=== PATIENT | male | born 1945 | race Caucasian/White ===

== ENCOUNTER → 2016-05-19 | Outpatient (CLI) | payer MEDICARE, OTHER ==
--- NOTE | 2016-05-19 09:09 | RAD ---
EXAM DESCRIPTION: Hip,Right 2 Views CLINICAL HISTORY: 70 yearsMale, PAIN IN RIGHT HIP COMPARISON: None. IMPRESSION: 2 views of the right hip demonstrates subtle joint space loss of the right hip with no evidence of fracture. Some deformity of the humeral head which may contribute to acetabular impingement syndrome. This can be confirmed on MRI. Electronically signed by: Juan Jaramillo MD 05/19/2016 9:08 AM FOOD SCIENCE PROFESSOR
--- NOTE | 2016-05-19 09:10 | RAD ---
EXAM DESCRIPTION: Pelvis CLINICAL HISTORY: 70 yearsMale, PAIN IN RIGHT HIP COMPARISON: None. IMPRESSION: Multilevel fusion including bilateral SI joint screws. Joint space loss of the right hip. Degenerative change of the pubic symphysis. The pelvis is intact. Electronically signed by: Juan Jaramillo MD 05/19/2016 9:09 AM FIRST ASSISTANT
== END | disposition home or self-care (01) ==
LOC: RAD 08:15
PROVIDERS: ATTEND Orthopaedic Surgery
DX: M25.551 Pain in right hip (principal)

== ENCOUNTER → 2016-11-20 | Outpatient (CLI) | payer MEDICARE, OTHER ==
--- NOTE | 2016-11-21 08:22 | RAD ---
EXAM DESCRIPTION: Wrist,Left 3 Views CLINICAL HISTORY: 71 years, Male, PAIN IN LEFT WRIST COMPARISON: None TECHNIQUE: AP/ lateral/ oblique views of the left wrist. FINDINGS: Severe degenerative changes at the base of the thumb at the carpal metacarpal articulation is evident. The wrist at the radiocarpal articulation is well preserved with very mild degenerative changes. No fracture or dislocation is noted. IMPRESSION: 1. Advanced degenerative changes at the base of the thumb at the carpal metacarpal articulation. Electronically signed by: Joaquin Figueroa MD 11/21/2016 8:20 AM CDT
== END | disposition home or self-care (01) ==
LOC: RAD 14:45
PROVIDERS: ATTEND Orthopaedic Surgery
DX: M25.532 Pain in left wrist (principal)

== ENCOUNTER 2017-08-28 06:20 | Day surgery (SDC) | payer MEDICARE, OTHER ==
--- NOTE | 2017-08-24 09:24 | HP ---
CHIEF COMPLAINT: Hand numbness and pain. HISTORY OF PRESENT ILLNESS: Mr. Hernandez is a 71-year-old male with a history of hand pain and numbness. He has some arthritis and he knows that has been preexisting. He denies any recent trauma, radiation of pain neurologic symptoms proximal to the wrist. He has had an EMG that shows that he does indeed have carpal tunnel syndrome. Because of the long-term presence of his carpal tunnel syndrome, he has requested operative intervention. After discussing the risks, benefits and alternatives to that, the patient has given informed consent. PAST SURGICAL HISTORY: 1. Lumbar fusion. MEDICATIONS: Please see his attached medication list. ALLERGIES: NO KNOWN DRUG ALLERGIES. CODE STATUS: DNR. IMMUNIZATIONS: Up to date. FAMILY HISTORY: None pertinent to today's complaint. SOCIAL HISTORY: The patient does not drink, smoke or use any illicit drugs. REVIEW OF SYSTEMS: Negative except as indicated in the History of Present Illness. PHYSICAL EXAMINATION: VITAL SIGNS: Blood pressure 128/69. Pulse 78. Height 5'8". Weight 175 pounds. MENTAL STATUS: The patient is awake, alert, and is able to give a good history and participate in the physical. The patient is oriented to person, place and time. SKIN: Normal tone and turgor. MUSCULOSKELETAL: He has full range of motion of the digits, but he does have some thenar atrophy. He has intact range of motion in the elbow and shoulder. 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 He has positive carpal compression test. He has warm and well perfused extremity. Tinel's is positive and he has pain over the first CMC joint. ASSESSMENT: 1. Carpal tunnel syndrome. 2. Osteoarthritis. PLAN: The plan at this point is for carpal tunnel release. We have also discussed injection of the first carpometacarpal joint as he tends to have pretty significant pain in that area. We have discussed the risks, benefits, and alternatives to these procedures and the patient has given informed consent. #[id number] [facility]
[2017-08-28] MEDS ORDERED: SODIUM CHL 0.9% 100ML MINI-BAG 100 ML IVPB ONE (09:51)
[2017-08-28] MEDS ORDERED: LACTATED RINGERS 1,000 ML ONE (09:51)
[2017-08-28] MEDS ORDERED: LIDOCAINE 1% 50 ML VIAL INJ ONE (10:00)
[2017-08-28] MEDS ORDERED: PROPOFOL 200 MG/20 ML VIAL IV ONE (10:00)
[2017-08-28] MEDS ORDERED: MIDAZOLAM INJ 2 MG/2 ML VIAL ONE (11:53)
[2017-08-28] MEDS ORDERED: fentaNYL CITRATE INJ 50 MCG/ML AMP ONE (11:54)
[2017-08-28] MEDS: ceFAZolin SODIUM 1 GM VIAL ONE ×2 (12:03→12:36)
[2017-08-28] MEDS: BUPIVACAINE 0.25% INJ 30 ML VIAL INJ ONE (12:28)
[2017-08-28] MEDS: LIDOCAINE 1% 50 ML VIAL INJ ONE (12:28)
[2017-08-28] MEDS: methylPREDNISolone ACETATE 80 MG/ML VIAL ONE (12:29)
[2017-08-28] MEDS: VANCOMYCIN HCL INJ 1,000 MG VIAL IVPB ONE (12:30)
[2017-08-28 13:06] VITALS: O2SAT 98
[2017-08-28 13:27] VITALS: BP 144/72; TEMP 98
--- NOTE | 2017-08-29 13:59 | OP ---
DATE OF PROCEDURE: 08/28/17 PREOPERATIVE DIAGNOSIS: 1. Carpal tunnel syndrome. 2. Osteoarthritis of the first carpometacarpal joint. POSTOPERATIVE DIAGNOSIS: 1. Carpal tunnel syndrome. 2. Osteoarthritis of the first carpometacarpal joint. PROCEDURE: 1. Carpal tunnel release. 2. Injection of the first carpometacarpal joint. SURGEON: Sudarshan Gardner MD. ASSOCIATE MANAGER: Dante Laboy CST, JAY JAY. ANESTHESIA: Local with sedation. COMPLICATIONS: None. FINDINGS: 1. Thickened of the transverse ligament. 2. Osteoarthritis of the first carpometacarpal joint. INDICATION: Mr. Hernandez has a history of pain in the hand in association with some numbness. Mr. Hernandez has tried conservative measures, however, has failed to gain relief. Because of his failure of relief, the patient has requested operative intervention. After discussing the risks, benefits and alternatives to that, the patient has given informed consent. PROCEDURE: The patient was brought to the Operating Room and placed in the supine position. Sedation was administered and local anesthetic was injected into the operative area under sterile conditions. After the injection of anesthetic, the arm was sterilely prepped and draped. A longitudinal incision was made directly overlying the transverse carpal ligament and blunt dissection was carried down to the ligament. The transverse carpal ligament was sharply transected along its length and a [place] elevator was used to ensure complete release of the ligament. Once release had been confirmed, the wound was thoroughly irrigated and the wound was closed with Nylon suture. Under sterile conditions, the first carpometacarpal joint was identified and was injected with a mixture of lidocaine and Depo-Medrol. Sterile dressings were placed and the patient was taken to the Day Surgery Unit. POSTOPERATIVE INSTRUCTIONS: The patient has been encouraged to do range of motion of the digits and will followup with us in two days. #[id number] [facility]
== END 2017-08-28 13:15 | disposition home or self-care (01) ==
LOC: AMB 06:20
PROVIDERS: ATTEND Orthopaedic Surgery
DX: G56.02 Carpal tunnel syndrome, left upper limb (principal); M18.12 Unilateral primary osteoarthritis of first carpometacarpal joint, left hand; Z66 Do not resuscitate; Z79.899 Other long term (current) drug therapy
CPT/HCPCS: 01810; 20600; 64721; J0690; J1030; J2250; J3010; J3370; J3490; J7050; J7120

== ENCOUNTER → 2017-09-18 | Outpatient (CLI) | payer MEDICARE, OTHER ==
--- NOTE | 2017-09-18 20:44 | CT ---
EXAM DESCRIPTION: Soft Tissue Neck w/Contrast: Computed Tomography CLINICAL HISTORY: 71 years Male, NECK MASS COMPARISON: None. TECHNIQUE: Spiral, axial 2.5 mm scans through the neck soft tissues after infusion of IV contrast. Sagittal and coronal 2.0 mm reconstructions. No adverse reactions. Total Exam DLP: 495.37 mGy-cm. This exam was performed according to our departmental CT dose-optimization program which includes automated exposure control, adjustment of the mA and/or kV according to patient size and/or use of iterative reconstruction technique; to reduce radiation dose to as low as reasonably achievable (ALARA). FINDINGS: An ill-defined low-density mass partial fluid and partial solid components is visualized abutting the posterior horn of the thyroid cartilage and extending toward the midline with effacement of the right posterior hypopharynx and minimal peripheral enhancement. This mass medial to the right posterior thyroid cartilage measures approximately 1.7 x 1.3 cm. This mass/ fluid is anterior to C4-5 right neural foramen and anterior cervical disc fusion plate at the C4-5 level (ACDF C4-C7). The mass/fluid courses in front of the right distal common carotid and inferiorly and anteriorly to the subcutaneous adipose tissue. The right sternocleidomastoid is also enlarged and is difficult to separate from the mass. This mass inferior margin is the upper pole of the right thyroid capsule and the apex of the thyroid cartilage. Also superior to the medial right clavicle. The mass measures 4.2 cm from the thyroid cartilage to the subcutaneous margin and the width is 1.8 cm at the subcutaneous margin. Depth at the subcutaneous margin is approximately 2 cm. Minimal displacement of the upper pole of the thyroid gland laterally. No adenopathy in the thyroid gland or other soft tissue masses. Above the lesion and below the lesion, the airway is normal caliber with no effacement or displacement. Salivary glands are unremarkable. No enlarged lymph nodes in the paracervical space, carotid space, or parapharyngeal space except for possibly one lymph node on the superior aspect of this tissue on the right. The right submandibular gland is not involved with this tissue. Bone density around the screws and plate of the cervical fusion construct is unremarkable. Partial ossification in the disc spaces more at C5-6 and C6-7 and C4-5. Bilateral neural foraminal narrowing. Possible stenosis on the right at C4-C5. Narrowing of the C7-T1 disc space. Also narrowing of T1-T2 disc space. Mild facet arthrosis at the fusion levels. Minimal emphysematous changes in the lungs bilaterally. IMPRESSION: 1. An ill-defined mass of tissue with predominantly low density and peripheral enhancement suggestive of an abscess can be seen in the right posterior parapharyngeal tissue with mass effect on the right posterior hypopharynx. This tissue also courses posterior to the posterior wing of the right thyroid cartilage and extends anteriorly to the subcutaneous tissues on the right side of the neck lateral to the thyroid cartilage. This abscess appears to be involving the right sternocleidomastoid muscle which is enlarged. This abscess is superior to the medial right clavicle, anterior to the right common carotid and internal jugular vein, and also exhibiting mass effect on the superior pole of the right thyroid and is abutting the anterior cervical disc fusion construct at C4 and C4-5 levels. Evaluation of the mass margins and extent is limited due to artifact from the bony clavicles, thyroid cartilage, and anterior cervical disc fusion. Cannot exclude abscess secondary to neoplastic involvement. Aspiration drainage of this mass with tissue sampling, culture and cytology is recommended. Consider ENT consult. 2. ACDF C4- C7 appears intact and unremarkable. Bilateral foraminal narrowing and possible right neural foraminal stenosis at C4-C5. 3. Emphysematous changes in the upper lung peña. Electronically signed by: Dante Jackson MD 09/18/2017 8:43 PM CDT
== END ==
LOC: CT 14:39
PROVIDERS: ATTEND Nurse Practitioner
DX: R22.1 Localized swelling, mass and lump, neck (principal)

== ENCOUNTER → 2018-01-21 | Outpatient (CLI) | payer MEDICARE, OTHER ==
--- NOTE | 2018-01-21 10:55 | RAD ---
EXAM DESCRIPTION: Shoulder,Left 2 or More Views CLINICAL HISTORY: 72 years Male, LEFT SHOULDER PAIN COMPARISON: None available. FINDINGS: The visualized bones are well-mineralized.No acute fracture or dislocation. The glenohumeral joint is intact. Moderate degenerative disease noted at the AC joint with osteophytosis and joint space narrowing. The soft tissues appear grossly unremarkable. IMPRESSION: 1. No acute fracture or dislocation. 2. Moderate left AC joint arthrosis. Electronically signed by: Michel Miranda MD 01/21/2018 10:54 AM [facility] [place]
== END ==
LOC: RAD 13:01
PROVIDERS: ATTEND Orthopaedic Surgery
DX: M19.012 Primary osteoarthritis, left shoulder (principal); M25.512 Pain in left shoulder

== ENCOUNTER → 2018-04-25 | Outpatient (CLI) | payer MEDICARE, OTHER ==
--- NOTE | 2018-04-26 10:32 | MRI ---
EXAM DESCRIPTION: Lumbar Spine w/wo Contrast: Magnetic Resonance Imaging. CLINICAL HISTORY: POSTLAMINECTOMY SYNDROME COMPARISON: None Available. TECHNIQUE: Multiplanar, MRI, multiple standard sequences, without and with standard dose Gadolinium IV contrast, lumbar spine. No adverse reactions. FINDINGS: Fusion construct L3-S1 with posterior transpedicular screws and interbody fusion devices at L3-4, L4-5, and L5-S1. Magnetic susceptibility artifact is noted around the hardware. No abnormal enhancement in the thecal sac. No enhancing or nonenhancing mass. No intraspinal or extraspinal fluid collection or enhancing fluid. Canal is patent at all 3 disc space levels. Bilateral foramina showing no significant narrowing or stenosis L3-4 and L4-5. Moderate to severe narrowing of the right L5-S1 foramen with left foramen unremarkable. No abnormal enhancement in the foramina. L2-3: Minimal disc desiccation with disc space maintained. Mild posterior disc bulge. Bilateral facet arthrosis with joint space and flavum ligament hypertrophy. AP canal diameter 9 mm. No abnormal enhancement. Bilateral mild to moderate foraminal narrowing. L1-L2: Minimal disc desiccation with disc space maintained. 2 mm grade 1 retrolisthesis. No disc bulging. Minimal flavum ligament hypertrophy. Canal and foramina are patent. Normal contrast enhancement. T12-L1: Minimal disc desiccation with disc space maintained. No significant bulging. Posterior elements unremarkable. Canal and foramina are patent. Normal contrast enhancement. Conus terminates at this level. Normal contrast enhancement of the conus and distal cord. Vertebral bodies are not compressed at any level. Otherwise normal marrow signal in the vertebral bodies and the posterior elements. Normal Contrast enhancement. Paravertebral soft tissues unremarkable.Perivertebral contrast enhancement normal. IMPRESSION: 1. Bilateral fusion construct L3-S1 with posterior transpedicular screws. No soft tissue mass, fluid collection, or abnormal contrast enhancement in the canal or paravertebral soft tissues. 2. Suggestion of moderate to severe foraminal narrowing on the right at L5-S1. Correlate for right L5 radiculopathy. No abnormal contrast enhancement. 3. Multifactorial mild central canal stenosis at L2-3. Bilateral mild to moderate foraminal narrowing. 4. 2 mm grade 1 retrolisthesis L1-L2. Canal and foramina are patent. Normal signal and enhancement of the conus and distal cord. Electronically signed by: Dante Jackson MD 04/26/2018 10:30 AM [facility]
== END ==
LOC: LAB.O 10:50
PROVIDERS: ATTEND Pain Medicine Interventional Pain Medicine
DX: M96.1 Postlaminectomy syndrome, not elsewhere classified (principal); M43.16 Spondylolisthesis, lumbar region

== ENCOUNTER 2018-08-08 17:13 | Emergency (ER) | payer MEDICARE, OTHER ==
[2018-08-08 17:37] VITALS: TEMP 98.8
--- NOTE | 2018-08-08 17:50 | ED.PDOC ---
History of Present Illness - General Chief Complaint: Back Pain or Injury Stated Complaint: BACK PAIN Time Seen by Provider: 08/08/18 17:29 Source: patient Exam Limitations: no limitations - History of Present Illness Initial Comments: patient comes in for severe low back pain. Patient has been dealing with low back pain for the past 5 years. He's had 6 surgeries and his last MRI was just a week ago. Originally he was placed on hydrocodone and that was increased to OxyContin 10 mg pills. However, he was recently decreased on 5 mg pills and the surgeon is no longer going to prescribe them. Patient states that his PCP will not prescribe opioids and they have been unable to place him with a pain doctor. Patient comes in today because the pain that he has had was severe and the OxyContin 5 mg was not helping. He does not have any changes pain no loss of bowel or bladder no numbness of his lower extremities. Patient is otherwise healthy and has no known drug allergies. Timing/Duration: constant Quality/Severity: severe Back Pain Location: lumbar spine Method of Injury/Prior Injury: prior injury Improving Factors: nothing Worsening Factors: nothing Allergies/Adverse Reactions: Allergies NO KNOWN ALLERGY Allergy (Unverified 12/30/12 19:51) Home Medications: Ambulatory Orders Amlodipine Besylate 5 mg PO DAILY 08/27/17 Bupropion HCl [Bupropion HCl Xl] 150 mg PO DAILY 08/27/17 Buspirone HCl 15 mg PO DAILY 08/27/17 Fluticasone Furoate [Flonase Sensimist] 27.5 mcg NA DAILY 08/27/17 Gabapentin [Neurontin] 300 mg PO DAILY 08/27/17 Hydrocodone-Acetaminophen [Hydrocodone Bitartrate/AC 10-325 mg] 1 tablet PO QID 08/27/17 Losartan Potassium 100 mg PO DAILY 08/27/17 Methocarbamol 750 mg PO DAILY 08/27/17 Morphine ER [MS Contin] 15 mg PO BID 08/27/17 Omeprazole [Omeprazole Dr] 40 mg PO DAILY 08/27/17 Pravastatin Sodium 80 mg PO DAILY 08/27/17 Tamsulosin HCl 0.4 mg PO BEDTIME 08/27/17 Review of Systems - Review of Systems Constitutional: States: no symptoms reported. Denies: chills, fever EENTM: States: no symptoms reported Respiratory: States: no symptoms reported Cardiology: States: no symptoms reported. Denies: chest pain, palpitations Gastrointestinal/Abdominal: States: no symptoms reported. Denies: abdominal pain, nausea Genitourinary: States: no symptoms reported Musculoskeletal: States: see HPI, back pain Past Medical History (General) - Patient Medical History Hx Congestive Heart Failure: No Hx Diabetes: No Hx MRSA: No Family Medical History - Family History Mother Family History: No Known Physical Exam - Physical Exam General Appearance: Alert, Comfortable, No apparent distress Eyes, Ears, Nose, Throat Exam: PERRL/EOMI Cardiovascular/Respiratory: regular rate, rhythm, no M/R/G, normal peripheral pulses, no JVD, normal breath sounds Gastrointestinal/Abdominal: normal bowel sounds, non tender, soft Back Exam: other - TTP through lumbar back with well healed scars consistent with his history. no deformity no ecchymosis Neurologic: no motor/sensory deficits, alert, oriented x 3 Progress - Results/Orders Results/Orders: discussed with patient that there was limited amount that we can do with the amount of opioid TR a takes. His dose today was 5 mg he took that earlier this morning. We'll give him a one-time dose of Toradol as well as morphine here and he is advised to seek care with his PCP to see if they can make an arrangement for chronic pain management as that cannot be done in the emergency room. Departure - Departure Clinical Impression: Back pain Qualifiers: Back pain location: low back pain Chronicity: chronic Back pain laterality: midline Sciatica presence: without sciatica Qualified Code(s): M54.5 - Low back pain; G89.29 - Other chronic pain Disposition: Discharge to Home or Self Care Condition: Fair Departure Forms: ED Discharge - Pt. Copy, Patient Portal Self Enrollment Referrals: SHANTHI LAGUERRE [Primary Care Provider] - 1-2 Weeks Home Medications: Ambulatory Orders Amlodipine Besylate 5 mg PO DAILY 08/27/17 Bupropion HCl [Bupropion HCl Xl] 150 mg PO DAILY 08/27/17 Buspirone HCl 15 mg PO DAILY 08/27/17 Fluticasone Furoate [Flonase Sensimist] 27.5 mcg NA DAILY 08/27/17 Gabapentin [Neurontin] 300 mg PO DAILY 08/27/17 Hydrocodone-Acetaminophen [Hydrocodone Bitartrate/AC 10-325 mg] 1 tablet PO QID 08/27/17 Losartan Potassium 100 mg PO DAILY 08/27/17 Methocarbamol 750 mg PO DAILY 08/27/17 Morphine ER [MS Contin] 15 mg PO BID 08/27/[address]eprazole [Omeprazole Dr] 40 mg PO DAILY 08/27/17 Pravastatin Sodium 80 mg PO DAILY 08/27/17 Tamsulosin HCl 0.4 mg PO BEDTIME 08/27/17 Additional Instructions: follow up with PCP in am to discuss snf plans for pain control
[2018-08-08] MEDS: MORPHINE SULFATE INJ 10 MG/ML VIAL IM ONE (18:11)
[2018-08-08] MEDS: KETOROLAC TROMETHAMINE INJ 30 MG/ML VIAL IM ONE (18:11)
[2018-08-08 18:43] VITALS: BP 154/81; O2SAT 98
== END 2018-08-08 18:35 | disposition home or self-care (01) ==
LOC: ER 17:13
DX: M54.5 Low back pain (principal); G89.29 Other chronic pain; Z98.890 Other specified postprocedural states; Z79.899 Other long term (current) drug therapy
CPT/HCPCS: J1885; J2270

== ENCOUNTER → 2018-09-20 | Outpatient (CLI) | payer MEDICARE, OTHER ==
--- NOTE | 2018-09-20 13:36 | MRI ---
EXAM DESCRIPTION: Lumbar Spine w/o Contrast : Magnetic Resonance Imaging. CLINICAL HISTORY: LUMBAR SPONDYLOSIS COMPARISON: MRI scan lumbar spine without contrast 04/25/2018. TECHNIQUE: Multiplanar, multiple standard sequences, non contrast MRI, lumbar spine. FINDINGS: Posterior and interbody fusion construct L3-S1 with bilateral connecting rods. Cross-link posterior to the L3-L4 disc space. L5-S1 disc space level is identified on axial T2 series 501, image 3. Interbody fusion device in the disc space. Bilateral transpedicular screws. Moderate narrowing of the right foramen and mild narrowing of the left foramen. No canal stenosis. No abnormal fluid in the canal or soft tissues. Stable since the prior study. L4-L5: Disc space maintained with interbody cage. No canal narrowing. Mild to moderate narrowing of the right foramen. L5 screws unremarkable. No abnormal fluid collections in the canal or soft tissues. Stable since the prior study. L3-L4: Interbody fusion device stable. Minimal canal narrowing. Mild bilateral foraminal narrowing. Customary position of the L4 screws. No abnormal fluid in the soft tissues are within the canal. L2-L3: Disc desiccation with disc space maintained. Posterior broad-based bulge. Bilateral hypertrophic facet arthrosis and ligament thickening. Cystic structures measuring approximately 6 and 7 mm abutting the left medial wall of the spinal canal, and the left facet joint, impressing on the thecal sac below the disc space. The anterior cyst also impressing on the left subarticular recess with probable compromise left L3 nerve. Not seen on the prior study. Moderate bilateral foraminal narrowing by disc spur complexes. Bilateral L3 screws unremarkable. L1-L2: Normal signal in the disc with disc space maintained. No disc bulging. Minimal bilateral facet hypertrophic arthrosis and ligament thickening. Canal and foramina are patent. T12-L1: Minimal disc desiccation with disc space maintained. No significant disc bulge. Posterior elements unremarkable. Canal and foramina patent. Conus terminates at this level. No significant scoliosis Paravertebral soft tissues Minimal Paravertebral Muscular Atrophy.. Normal marrow signal in the remaining vertebral bodies and the posterior elements. Vertebral bodies are not compressed at any level. IMPRESSION: 1. 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 New finding since the prior study. Borderline canal stenosis. Bilateral foramina are nearly stenotic secondary to disc osteophyte complexes encroaching on the foramina. 2. Posterior and interbody fusion construct L3-S1 with no complications. Moderate right foraminal narrowing at multiple levels. Electronically signed by: Dante Jackson MD 09/20/2018 1:34 PM CDT
== END ==
LOC: MRI 12:03
PROVIDERS: ATTEND Neurological Surgery
DX: M47.26 Other spondylosis with radiculopathy, lumbar region (principal); M48.062 Spinal stenosis, lumbar region with neurogenic claudication; M71.38 Other bursal cyst, other site; Z98.1 Arthrodesis status

== ENCOUNTER → 2018-12-27 | Outpatient (CLI) | payer MEDICARE, OTHER ==
--- NOTE | 2018-12-27 16:49 | RAD ---
EXAM DESCRIPTION: Wrist,Left 3 Views CLINICAL HISTORY: 73 years Male, PAIN IN LEFT WRIST COMPARISON: None available. FINDINGS: The visualized bones are well-mineralized.No acute fracture or dislocation. Moderate to severe degenerative changes are identified in the first carpometacarpal joint. The soft tissues appear grossly unremarkable. IMPRESSION: Moderate to severe degenerative changes are identified in the first carpometacarpal joint. Electronically signed by: Michel Miranda MD 12/27/2018 4:47 PM CDT
== END ==
LOC: RAD 10:06
PROVIDERS: ATTEND Orthopaedic Surgery
DX: M18.12 Unilateral primary osteoarthritis of first carpometacarpal joint, left hand (principal)

== ENCOUNTER → 2019-01-14 | Outpatient (CLI) | payer MEDICARE, OTHER ==
--- NOTE | 2019-01-14 16:08 | CT ---
EXAM DESCRIPTION: Lumbar Spine CLINICAL HISTORY: 73 years, Male, radiculopathy COMPARISON: MRI September 20, 2018 TECHNIQUE: Lumbar CT with thin-section axial imaging with reconstructed MPR images reviewed as well. This exam was performed according to our departmental dose-optimization program, which includes automated exposure control, adjustment of the mA and/or kV according to patient size and/or use of iterative reconstruction technique. FINDINGS: Near-anatomic alignment of the lumbar spine with extensive prior anterior and posterior surgery is evident from the upper L2 level to the upper sacrum. Since recent September MRI examination fixation of the L2 level with bilateral pedicle screws and posterior rods interlocking with the extensive spinal hardware below this level is evident. There are bilateral pedicle screws at L3 and L4 and L5 with resected remnants of pedicle screws in the upper S1 segment. Additional anchoring screws extend from the posterior spinal rods into the medial aspect of each iliac wing posterior laterally. Remnants of the S1 pedicle screws are no longer attached to the posterior spinal rods. Disc graft material and anterior interbody fusion with mild estimated three or 4 mm anterolisthesis is noted at L5-S1 with a similar but anatomically aligned appearance at L4-5. Radiopaque disc graft material is present with incomplete bony fusion at the L3-4 level. Interval graft material placement at the L2-3 level is noted. The posterior extent of this graft material projects into the decompressed thecal sac behind the posterior vertebral body column approximately 5 mm in the midline and to the right of midline but there is wide decompression of the spine posteriorly at this level. The left L2 neural foramen appears adequate with modest narrowing of the right L2 neural foramen inferiorly. Disc contours at L1-2 is essentially anatomic with mild annular bulge with a similar appearance at T12-L1. A large paraspinous or retroperitoneal fluid collection or hematoma is not apparent. Evaluation of the epidural space within the decompressed an enlarged bony spinal canal is limited by the lack of contrast and extensive metallic artifact on the CT examination. IMPRESSION: 1. Extensive prior posterior and anterior surgery of the mid and lower lumbar spine from the upper L2 level to the upper sacrum in the medial upper aspect of the ileum with new bilateral L2 pedicle screws interlocking with posterior rods that extend to anchoring screws in the medial aspect of each iliac wing. Previous S1 anchoring screws are resected within the sacrum and no longer attached to the posterior spinal rods. 2. Wide posterior decompression from the upper L2 to the upper sacrum. 3. Mature anterior interbody disc fusion at L5-S1 with mild three or 4 mm of anterolisthesis at this level and mature anatomically aligned anterior interbody fusion at L4-5 with wide decompression at each of these levels. 4. Disc graft material with incomplete bony fusion at the L3-4 level with anatomic alignment. Wide decompression noted. 5. New disc graft material at the L2-3 disc level with some the disc graft material projecting into the anterior epidural space in the midline into the right of midline estimated at four or 5 mm with wide posterior decompression at this level. Adequate left with modestly narrowed right L2 neural foramen. 6. Mild annular prominence with otherwise normal disc contours T12-L1 and L1-2 with adequate canal. Electronically signed by: Joaquin Figueroa MD 01/14/2019 4:07 PM [facility]
== END ==
LOC: CT 13:20
PROVIDERS: ATTEND Neurological Surgery
DX: M47.26 Other spondylosis with radiculopathy, lumbar region (principal); M43.16 Spondylolisthesis, lumbar region; Z98.1 Arthrodesis status

== ENCOUNTER → 2019-05-08 | Outpatient (CLI) | payer MEDICARE, OTHER ==
--- NOTE | 2019-05-08 15:30 | RAD ---
Single frontal view pelvis Indication: PAIN IN LEFT HIP Comparison: May 19, 2016 Impression: Mild bilateral hip osteoarthritis with joint space narrowing and acetabular roof osteophyte formation. No appreciable fracture. Prostate gland seeds noted. Extensive lumbar, sacral, and iliac fusion construct. Suspected fracturing of the vertical stabilization rods at the L4-L5 level. Electronically signed by: Pop Smith MD 05/08/2019 3:28 PM [facility]
--- NOTE | 2019-05-08 15:33 | RAD ---
Left knee 4 views INDICATION: Knee pain IMPRESSION: Mild intercondylar osteophyte formation. Minimal spurring of the tibial spines. Tiny radiopaque density at the upper patellofemoral joint extrinsic to the knee. Minimal patellofemoral osteophyte formation. No acute abnormality. Normal patellofemoral alignment. Electronically signed by: Javier Fuller MD 05/08/2019 3:31 PM [facility]
== END ==
LOC: RAD 10:33
PROVIDERS: ATTEND Orthopaedic Surgery
DX: M16.0 Bilateral primary osteoarthritis of hip (principal); M25.762 Osteophyte, left knee; M43.26 Fusion of spine, lumbar region; N42.9 Disorder of prostate, unspecified

== ENCOUNTER 2019-07-09 21:07 | Emergency (ER) | payer MEDICARE, OTHER ==
[2019-07-09 21:30] VITALS: TEMP 98.8
--- NOTE | 2019-07-09 21:33 | ED.PDOC ---
History of Present Illness - General Time Seen by Provider: 07/09/19 21:24 Source: patient, RN notes reviewed, Vital Signs reviewed Exam Limitations: no limitations - History of Present Illness Initial Comments: Pt is a 73 yo male with PMH of HTN, CAD who presents to ED with 2 day h/o generalized fatigue and short of breath. States yesterday, he was trimming trees and got very fatigued and short of breath and had to go inside and rest for the rest of the day which improved his symptoms. States he stayed indoors today until 1700 and went outside and climbed the ladder and was able to trim 2 tree limbs before becoming fatigued and had to stop. Denies CP, fever, cough, nausea, unilateral weakness, speech difficulty, dysuria. 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 Allergies/Adverse Reactions: Allergies NO KNOWN ALLERGY Allergy (Unverified 12/30/12 19:51) Home Medications: Ambulatory Orders Amlodipine Besylate 5 mg PO DAILY 08/27/17 Bupropion HCl [Bupropion HCl Xl] 150 mg PO DAILY 08/27/17 Buspirone HCl 15 mg PO DAILY 08/27/17 Fluticasone Furoate [Flonase Sensimist] 27.5 mcg NA DAILY 08/27/17 Gabapentin [Neurontin] 300 mg PO DAILY 08/27/17 Hydrocodone-Acetaminophen [Hydrocodone Bitartrate/AC 10-325 mg] 1 tablet PO QID 08/27/17 Losartan Potassium 100 mg PO DAILY 08/27/17 Methocarbamol 750 mg PO DAILY 08/27/17 Morphine ER [MS Contin] 15 mg PO BID 08/27/17 Omeprazole [Omeprazole Dr] 40 mg PO DAILY 08/27/17 Pravastatin Sodium 80 mg PO DAILY 08/27/17 Tamsulosin HCl 0.4 mg PO BEDTIME 08/27/17 Potassium Chloride Tab [K-Dur] 20 meq PO DAILY #20 tab 07/09/19 Review of Systems - Review of Systems Constitutional: States: weakness - generalized. Denies: chills, fever EENTM: Denies: blurred vision, ear pain, nose congestion, throat pain Respiratory: States: short of breath. Denies: cough, wheezing Cardiology: Denies: chest pain, palpitations, syncope Gastrointestinal/Abdominal: Denies: abdominal pain, diarrhea, nausea, vomiting Genitourinary: Denies: dysuria, frequency, hematuria Musculoskeletal: Denies: back pain, neck pain Skin: States: no symptoms reported Neurological: States: other - Has felt lightheaded when symptoms come on. Denies: headache, paresthesia Endocrine: Denies: increased hunger, increased thirst, increased urine Hematologic/Lymphatic: Denies: anemia, easy bleeding, easy bruising All other Systems: Reviewed and Negative Past Medical History (General) - Patient Medical History Hx Congestive Heart Failure: No Hx Diabetes: No Hx MRSA: No Family Medical History - Family History Mother Family History: No Known Physical Exam - Physical Exam General Appearance: Alert, Comfortable, No apparent distress, Well Developed, Well Groomed, Other - Lying on gurney in no distress Eye Exam: bilateral normal - PERRL Ears, Nose, Throat: normal pharynx Neck: non-tender, full range of motion, supple Respiratory: chest non-tender, lungs clear, normal breath sounds, no respiratory distress, no accessory muscle use Cardiovascular/Chest: regular rate, rhythm, no edema, no murmur Gastrointestinal/Abdominal: non tender, soft, no pulsatile mass Back Exam: no CVA tenderness, no vertebral tenderness Extremity: normal range of motion, non-tender, no pedal edema, no calf tenderness Neurologic: supervisor records change II-XII nml as tested, no motor/sensory deficits, alert, normal mood/affect, oriented x 3, other - [place] Skin Exam: normal color, warm/dry Progress - Progress Progress: 07/09/19 22:19 Pt presented with 2 day h/o generalized fatigue. Initial labs and imaging unremarkable except for mild dehydration(Cr 1.5--baseline is 0.9) and low potassium. Will treat with IVF and potassium and plan to repeat 2 hour troponin in ED for further evaluation. Pt agrees with plan. States he has had low potassium in the past due to drinking to much alcohol. 07/09/19 23:57 repeat troponin unchanged. Pt feels comfortable going home. Will continue oral hydration and start on potassium supplement. I have asked him to f/u with pcp in 1-2 days for recheck and outpatient help desk rep within 1 week. SRP given. - Results/Orders Results/Orders: CHEST XRAY EXAM DESCRIPTION: XR Chest, 1 View CLINICAL HISTORY: 73 years Male Short of breath TECHNIQUE: One view of the chest. COMPARISON: 12/30/2012 FINDINGS: Postsurgical changes in the lower cervical spine and a since the prior exam. The lungs are clear without focal consolidation, effusion, or pneumothorax. The cardiomediastinal silhouette and central pulmonary vasculature are normal. No acute osseous abnormalities. IMPRESSION: No acute cardiopulmonary abnormalities. 07/09/19 21:28 IV:Start .ONCE 07/09/19 21:30 EKG .ONCE Laboratory Results - last 24 hr 07/09/19 07/09/19 07/09/19 21:43 21:43 21:43 WBC 7.8 RBC 3.93 L Hgb 11.1 L Hct 34.1 L MCV 86.7 MCH 28.4 MCHC 32.7 L RDW 17.5 H Plt Count 293 MPV 6.9 L Absolute Neuts (auto) 6.10 Absolute Lymphs (auto) 0.90 L Absolute Monos (auto) 0.60 Absolute Eos (auto) 0.20 Absolute Basos (auto) 0.00 Neutrophils % 77.9 Lymphocytes % 11.6 L Monocytes % 7.9 Eosinophils % 2.1 Basophils % 0.5 Sodium 135 Potassium 3.0 L Chloride 103 Carbon Dioxide 23 Anion Gap 12.0 BUN 31 H Creatinine 1.54 H BUN/Creatinine Ratio 20.1 H Random Glucose 109 H Serum Osmolality 277.2 Calcium 8.8 Total Bilirubin 0.4 AST 28 ALT 31 Alkaline Phosphatase 51 Troponin I 0.03 B-Natriuretic Peptide 33.0 Serum Total Protein 7.5 Albumin 4.5 Globulin 3.0 Albumin/Globulin Ratio 1.5 Urine Color Urine Appearance Urine pH Ur Specific [place] Urine Protein Urine Glucose (UA) Urine Ketones Urine Blood Urine Nitrite Urine Bilirubin Urine Urobilinogen Ur Leukocyte Esterase Urine RBC Urine WBC Ur Epithelial Cells Urine Bacteria 07/09/19 07/09/19 22:04 23:15 WBC RBC Hgb Hct MCV MCH MCHC RDW Plt Count MPV Absolute Neuts (auto) Absolute Lymphs (auto) Absolute Monos (auto) Absolute Eos (auto) Absolute Basos (auto) Neutrophils % Lymphocytes % Monocytes % Eosinophils % Basophils % Sodium Potassium Chloride Carbon Dioxide Anion Gap BUN Creatinine BUN/Creatinine Ratio Random Glucose Serum Osmolality Calcium Total Bilirubin AST ALT Alkaline Phosphatase Troponin I 0.03 B-Natriuretic Peptide Serum Total Protein Albumin Globulin Albumin/Globulin Ratio Urine Color Yellow Urine Appearance Clear Urine pH 5.5 Ur Specific [place] 1.020 Urine Protein Negative Urine Glucose (UA) Negative Urine Ketones Negative Urine Blood Negative Urine Nitrite Negative Urine Bilirubin Negative Urine Urobilinogen 0.2 Ur Leukocyte Esterase Negative Urine RBC 0 Urine WBC 0 Ur Epithelial Cells 0 Urine Bacteria 0 - EKG/XRAY/CT EKG: nonspecific ST T wave Chg Comments: sinus rhythm with frequent PAC in bigeminy pattern, rate 87, nml intervals Departure - Departure Clinical Impression: JUNIOR (acute kidney injury), Hypokalemia, Generalized weakness Fatigue Qualifiers: Fatigue type: unspecified Qualified Code(s): R53.83 - Other fatigue Time of Disposition: 23:58 Disposition: Discharge to Home or Self Care Condition: Good Instructions: Hypokalemia (DC) Diet: resume usual diet Activity: increase activity as tolerated Referrals: SHANTHI LAGUERRE [Primary Care Provider] - 1-2 Days Prescriptions: Potassium Chloride Tab [K-Dur] 20 meq PO DAILY #20 tab Home Medications: Ambulatory Orders Amlodipine Besylate 5 mg PO DAILY 08/27/17 Bupropion HCl [Bupropion HCl Xl] 150 mg PO DAILY 08/27/17 Buspirone HCl 15 mg PO DAILY 08/27/17 Fluticasone Furoate [Flonase Sensimist] 27.5 mcg NA DAILY 08/27/17 Gabapentin [Neurontin] 300 mg PO DAILY 08/27/17 Hydrocodone-Acetaminophen [Hydrocodone Bitartrate/AC 10-325 mg] 1 tablet PO QID 08/27/17 Losartan Potassium 100 mg PO DAILY 08/27/17 Methocarbamol 750 mg PO DAILY 08/27/17 Morphine ER [MS Contin] 15 mg PO BID 08/27/17 Omeprazole [Omeprazole Dr] 40 mg PO DAILY 08/27/17 Pravastatin Sodium 80 mg PO DAILY 08/27/17 Tamsulosin HCl 0.4 mg PO BEDTIME 08/27/17 Potassium Chloride Tab [K-Dur] 20 meq PO DAILY #20 tab 07/09/19
--- NOTE | 2019-07-09 21:49 | RAD ---
EXAM DESCRIPTION: XR Chest, 1 View CLINICAL HISTORY: 73 years Male Short of breath TECHNIQUE: One view of the chest. COMPARISON: 12/30/2012 FINDINGS: Postsurgical changes in the lower cervical spine and a since the prior exam. The lungs are clear without focal consolidation, effusion, or pneumothorax. The cardiomediastinal silhouette and central pulmonary vasculature are normal. No acute osseous abnormalities. IMPRESSION: No acute cardiopulmonary abnormalities. Electronically signed by: Eve Bates MD 07/09/2019 9:48 PM CDT
[2019-07-09] MEDS ORDERED: POTASSIUM CHLORIDE 20 MEQ TAB PO ONE (22:21)
[2019-07-09] MEDS ORDERED: SODIUM CHLORIDE 0.9% 1000ML 1,000 ML IVS ONE (22:21)
[2019-07-10 00:02] VITALS: BP 164/90; O2SAT 97
== END 2019-07-10 00:04 | disposition home or self-care (01) ==
LOC: ER 21:07
DX: N17.9 Acute kidney failure, unspecified (principal); E86.0 Dehydration; E87.6 Hypokalemia; R53.1 Weakness; I10 Essential (primary) hypertension; I25.10 Atherosclerotic heart disease of native coronary artery without angina pectoris; I25.2 Old myocardial infarction; Z95.5 Presence of coronary angioplasty implant and graft
CPT/HCPCS: 36415; 71045; 80053; 81001; 83880; 84484; 85025; 93005; J7030